=== PATIENT | female | born 1995 | race Hispanic/Latino ===

== ENCOUNTER 2017-11-19 00:40 | Emergency (ER) | payer SELFPAY ==
[2017-11-19 00:55] VITALS: O2SAT 100
[2017-11-19] MEDS ORDERED: Sodium Chloride 0.9% 1,000 ML IV STA (01:06)
--- NOTE | 2017-11-19 01:35 | ED PDOC ---
HPI: Psych/Substance Abuse Time Seen by Provider: 11/19/17 00:59 Chief Complaint (Nursing): Alcohol Ingestion Chief Complaint (Provider): Alcohol Ingestion History Per: Patient History/Exam Limitations: intoxication Onset/Duration Of Symptoms: Hrs Current Symptoms Are (Timing): Still Present Modifying Factor(s): Alcohol Additional History Per: Friend Additional Complaint(s): 22 year old female presents to the ED for an evaluation of alcohol intoxication. Patient presents with two friends who state they were drinking tonight. Prior to going to the bar, they mixed 3 drinks. Patient went into the bar before her friends and 30 minutes afterwards, she was vomiting and felt nauseous. She denies drinking in the bar. Also reports of epigastric abdominal pain now. PMD: No Family Provider Past Medical History Reviewed: Historical Data, Nursing Documentation, Vital Signs Vital Signs: Last Vital Signs Temp 98.9 F 11/19/17 00:53 Pulse 70 11/19/17 00:53 Resp 16 11/19/17 00:53 BP 127/85 11/19/17 00:53 Pulse Ox 100 11/19/17 00:53 - Medical History PMH: No Chronic Diseases - Family History Family History: States: Unknown Family Hx - Allergies Allergies/Adverse Reactions: Allergies Allergy/AdvReac Type Severity Reaction Status Date / Time Penicillins Allergy ANAPHYLAXIS Verified 11/19/17 00:54 Review of Systems ROS Statement: Except As Marked, All Systems Reviewed And Found Negative Gastrointestinal: Positive for: Nausea, Vomiting, Abdominal Pain Psych: Negative for: Suicidal ideation (homicidal ideation ) Physical Exam - Reviewed Nursing Documentation Reviewed: Yes Vital Signs Reviewed: Yes - Physical Exam Appears: Positive for: Non-toxic, No Acute Distress. Negative for: Well ( actively vomiting) Head Exam: Positive for: ATRAUMATIC Skin: Positive for: Normal Color, Warm, Dry Eye Exam: Positive for: EOMI, Normal appearance, PERRL ENT: Positive for: Normal ENT Inspection Cardiovascular/Chest: Positive for: Regular Rate, Rhythm. Negative for: Murmur Respiratory: Positive for: Normal Breath Sounds. Negative for: Decreased Breath Sounds, Wheezing, Respiratory Distress Gastrointestinal/Abdominal: Positive for: Soft. Negative for: Tenderness Extremity: Positive for: Normal ROM. Negative for: Tenderness, Pedal Edema, Deformity Neurologic/Psych: Positive for: Alert, Oriented (x3) - Laboratory Results Result Diagrams: 11/19/17 01:30 09/09/18 01:30 - ECG O2 Sat by Pulse Oximetry: 100 (RA) Pulse Ox Interpretation: Normal - Progress Re-evaluation Time: 02:50 (Pt.'s mother is at bedside. Gait steady, unassisted. ) Condition: Re-examined, Improved Medical Decision Making Medical Decision Making: Time: 104 Initial Plan: --CMP --HCG, Qualitative Serum --Lipase --CBC w/ Differential --Glucose, POC --Normal Saline 1000 mls/hr --Pepcid 40mg --Zofran 4mg --IV Insertion --Urinalysis Scribe Attestation: Documented by Amos Oliveira, acting as a scribe for Carroll Simmons PA-C. Provider Scribe Attestation: All medical record entries made by the Scribe were at my direction and personally dictated by me. I have reviewed the chart and agree that the record accurately reflects my personal performance of the history, physical exam, medical decision making, and the department course for this patient. I have also personally directed, reviewed, and agree with the discharge instructions and disposition. Disposition - Clinical Impression Clinical Impression: Alcohol intoxication - Patient ED Disposition Is Patient to be Admitted: No - Disposition Referrals: [facility] [Outside] Disposition: Routine/Home Disposition Time: 02:51 Condition: IMPROVED Additional Instructions: ZEB ANDERSON, thank you for letting us take care of you today. Your provider was Ramsey David MD and you were treated for ETOH. The emergency medical care you received today was directed at your acute symptoms. If you were prescribed any medication, please fill it and take as directed. It may take several days for your symptoms to resolve. Return to the Emergency Department if your symptoms worsen, do not improve, or if you have any other problems. Please contact your doctor or call one of the physicians/clinics you have been referred to that are listed on the Patient Visit Information form that is included in your discharge packet. Bring any paperwork you were given at discharge with you along with any medications you are taking to your follow up visit. Our treatment cannot replace ongoing medical care by a primary care provider outside of the emergency department. Thank you for allowing the [email or web address] team to be part of your care today. If you had an X-Ray or CT scan: A Radiologist will review the ED reading if any change in treatment is needed we will contact you. If you had a blood, urine, or wound culture: It will take several days for the results, if any change in treatment is needed we will contact you. If you had an STI test: It will take 48 hours for the results. Please call after 1 week if you have not heard back. Forms: [employer] (German)
[2017-11-19 01:43] LABS: BASO % 0.6 % (0.0-2.0); EOS # 0.1 K/uL (0.0-0.7); EOS % 1.2 % (0.0-4.0); HEMOGLOBIN 13.2 g/dL (12.0-16.0); LYMPH # 2.8 K/uL (1.0-4.3); LYMPH % 36.9 % (20.0-40.0); MEAN CELL VOLUME 80.7 fl (81.0-99.0); MEAN CORPUSCULAR HEMOGLOBIN 27.1 pg (27.0-31.0); MEAN CORPUSCULAR HGB CONC 33.6 g/dL (33.0-37.0); MEAN PLATELET VOLUME 9.4 fl (7.2-11.7); MONO # 0.3 K/uL (0.0-0.8); MONO % 3.8 % (0.0-10.0); NEUT # 4.4 K/uL (1.8-7.0); NEUT % 57.5 % (50.0-75.0); RBC 4.86 Mil/uL (3.80-5.20); RED CELL DISTRIBUTION WIDTH 14.3 % (11.5-14.5); WHITE BLOOD COUNT 7.6 K/uL (4.8-10.8)
[2017-11-19 01:52] LABS: ALB/GLOB RATIO 1.6 (1.0-2.1); ALT/SGPT 33 U/L (9-52); AST/SGOT 25 U/L (14-36); BLOOD UREA NITROGEN 12 mg/dl (7-17); CALCIUM 9.5 mg/dL (8.4-10.2); GFR NON-AFRICAN AMERICAN > 60; LIPASE 104 U/L (23-300)
[2017-11-19 04:40] VITALS: BP 120/81; PULSE 76; RESP 18; TEMP 98.1
== END 2017-11-19 03:10 | disposition home or self-care (01) ==
LOC: EDSEX 00:40 → H.ER 00:40
DX: F10.129 Alcohol abuse with intoxication, unspecified (principal); R11.2 Nausea with vomiting, unspecified; R10.13 Epigastric pain; Z88.0 Allergy status to penicillin
CPT/HCPCS: 80053; 82948; 83690; 84703; 85025; 96374; 96375; 99282; G0480; J2405; J7030